=== PATIENT | male | born 1975 | race Two or more races ===

== ENCOUNTER 2019-04-08 16:17 | Emergency (ER) | payer OTHER ==
[~2019-04-08] VITALS: Ht 182.9 cm; Wt 90.7 kg
[2019-04-08 17:31] LABS: Basophils # (auto) 0 uL; Basophils % (auto) 0.8 % (0.0-2.0); Eosinophils # (auto) 0.3 uL; Eosinophils % (auto) 4.2 % (0.0-7.0); Hematocrit 45.2 % (41.0-53.0); Hemoglobin 15.4 g/dL (13.5-17.5); Lymphocytes # (auto) 1.7 uL; Lymphocytes % (auto) 27.7 % (10.0-50.0); Mean Corpuscular Hemoglobin 29.8 pg (28.0-32.0); Mean Corpuscular Hgb Conc. 34.1 g/dL (32.0-36.0); Mean Corpuscular Volume 87.5 fL (80.0-100.0); Monocytes # (auto) 0.5 uL; Monocytes % (auto) 8.3 % (0.0-12.0); Neutrophils # (auto) 3.7 uL; Nucleated Red Blood Cells % 0.1 %; Platelet Count (auto) 232 10^3/uL (140-450); Red Blood Cells 5.17 10^6/uL (4.5-5.90); Red Cell Distribution Width 14.3 % (11.8-14.3); White Blood Cell 6.3 10^3/uL (4.4-10.8)
[2019-04-08 17:40] LABS: Acetaminophen < 2.0 ug/mL (10-30); Salicylate < 1.7 mg/dL (2.8-20.0)
[2019-04-08 17:41] LABS: Albumin 4.1 g/dL (3.4-5.0); Anion Gap 4 (5-15); Blood Alcohol < 3.0 mg/dL (0-5); Blood Urea Nitrogen 11 mg/dL (7-18); Calcium 8.6 mg/dL (8.5-10.1); Carbon Dioxide 34 mmol/L (21-32); Chloride 103 mmol/L (98-107); Glucose 84 mg/dL (74-106); Potassium 3.8 mmol/L (3.5-5.1); Sodium 141 mmol/L (136-145)
[2019-04-08 17:44] LABS: Alanine Aminotransferase 38 U/L (16-61); Alkaline Phosphatase 138 U/L (45-117); Aspartate Aminotransferase 27 U/L (15-37); BUN/Creatinine Ratio 9.4; Bilirubin, Total 0.5 mg/dL (0.2-1.0); GFR African American 86 mL/min; GFR Non-African American 71 mL/min; Total Protein 8.2 g/dL (6.4-8.2)
[2019-04-08 19:23] LABS: Urine Bacteria NONE SEEN /hpf (None Seen); Urine Blood Negative /uL (Negative); Urine Specific Gravity 1.008 (1.001-1.035); Urine WBC <1 /hpf (0 - 3)
[2019-04-08 19:41] LABS: Alcohol, Urine < 3.0 mg/dL (0-5); Amphetamine Screen, Urine NEGATIVE (NEGATIVE); Barbiturate Scree,Urine NEGATIVE (NEGATIVE); Benzodiazephine Screen, Urine NEGATIVE (NEGATIVE); Cannabinoid Screen, Urine NEGATIVE (NEGATIVE); Cocaine Screen, Urine NEGATIVE (NEGATIVE); Opiate Scree,Urine NEGATIVE (NEGATIVE); Phencyclidine Screen, Urine NEGATIVE (NEGATIVE)
[2019-04-08 20:00] VITALS: BP 132/69
== END 2019-04-08 20:34 | disposition home or self-care (01) ==
LOC: ER 16:17 → EEVIPCON 16:17 → EDBD 16:17 → ER 20:34
DX: F41.9 Anxiety disorder, unspecified (principal); F32.9 Major depressive disorder, single episode, unspecified; R45.851 Suicidal ideations; I10 Essential (primary) hypertension
CPT/HCPCS: 36415; 80053; 80307; 80320; 80329; 81001; 85025; 93005

== ENCOUNTER 2019-06-23 22:05 | Emergency (ER) | payer OTHER ==
[~2019-06-23] VITALS: Ht 182.9 cm; Wt 104.0 kg
[2019-06-23 23:50] LABS: Basophils # (auto) 0.1 10 ^3/uL (0-0.2); Basophils % (auto) 0.8 % (0.0-2.0); Eosinophils # (auto) 0.5 10 ^3/uL (0-0.8); Eosinophils % (auto) 4.3 % (0.0-7.0); Hematocrit 43.8 % (41.0-53.0); Hemoglobin 15.6 g/dL (13.5-17.5); Lymphocytes % (auto) 16.6 % (10.0-50.0); Mean Corpuscular Hemoglobin 30.6 pg (28.0-32.0); Mean Corpuscular Hgb Conc. 35.7 g/dL (32.0-36.0); Mean Corpuscular Volume 85.6 fL (80.0-100.0); Monocytes # (auto) 1.1 10 ^3/uL (0-1.3); Monocytes % (auto) 9.2 % (0.0-12.0); Neutrophils # (auto) 8.4 10 ^3/uL (1.6-8.6); Neutrophils % (auto) 69.1 % (37.0-80.0); Nucleated Red Blood Cells % 0.1 %; Platelet Count (auto) 245 10^3/uL (140-450); Red Blood Cells 5.12 10^6/uL (4.5-5.90); Red Cell Distribution Width 14.3 % (11.8-14.3); White Blood Cell 12.1 10^3/uL (4.4-10.8)
[2019-06-24 00:07] LABS: Albumin 3.5 g/dL (3.4-5.0); Anion Gap 6 (5-15); BUN/Creatinine Ratio 12.6; Blood Alcohol < 3.0 mg/dL (0-5); Blood Urea Nitrogen 15 mg/dL (7-18); Calcium 8.5 mg/dL (8.5-10.1); Carbon Dioxide 26 mmol/L (21-32); Chloride 106 mmol/L (98-107); GFR African American 85 mL/min; GFR Non-African American 70 mL/min; Glucose 119 mg/dL (74-106); Sodium 138 mmol/L (136-145)
[2019-06-24 00:12] LABS: Potassium 2.9 mmol/L (3.5-5.1)
[2019-06-24 00:18] LABS: Acetaminophen < 2.0 ug/mL (10-30); Alanine Aminotransferase 26 U/L (16-61); Alkaline Phosphatase 124 U/L (45-117); Aspartate Aminotransferase 19 U/L (15-37); Bilirubin, Total 0.3 mg/dL (0.2-1.0); Salicylate < 1.7 mg/dL (2.8-20.0); Total Protein 7.5 g/dL (6.4-8.2)
[2019-06-24] MEDS ORDERED: SODIUM BICARBONATE 8.4 % INJ 50ML VIAL IV ONE (03:15)
[2019-06-24 03:25] LABS: Urine Bacteria FEW /hpf (None Seen); Urine Blood Negative /uL (Negative); Urine Hyaline Cast MANY /lpf (0 - 2); Urine Mucus FEW (None Seen); Urine Specific Gravity 1.025 (1.001-1.035); Urine WBC 3 /hpf (0 - 3)
[2019-06-24] MEDS ORDERED: POTASSIUM CHL 20 Meq TABLET PO ONE (03:30)
[2019-06-24 03:36] LABS: Alcohol, Urine < 3.0 mg/dL (0-5); Amphetamine Screen, Urine NEGATIVE (NEGATIVE); Barbiturate Scree,Urine NEGATIVE (NEGATIVE); Benzodiazephine Screen, Urine NEGATIVE (NEGATIVE); Cannabinoid Screen, Urine NEGATIVE (NEGATIVE); Cocaine Screen, Urine NEGATIVE (NEGATIVE); Opiate Scree,Urine NEGATIVE (NEGATIVE); Phencyclidine Screen, Urine NEGATIVE (NEGATIVE)
[2019-06-24] MEDS ORDERED: MAGNESIUM SULFATE 1GM/100ML 100 ML IV ONE (04:00)
[2019-06-24] MEDS: POTASSIUM CHL 20MEQ/100ML 100 ML IV SCH (05:15)
[2019-06-24] MEDS ORDERED: SODIUM CHLORIDE 0.9% 1,000 ML IV ONE (06:45)
[2019-06-24 09:15] VITALS: BP 120/80
== END 2019-06-24 09:40 | disposition home or self-care (01) ==
LOC: ER 22:05 → EDBD 22:05 → EEVIPCON 22:05 → ER 06-24 09:40
DX: S81.812A Laceration without foreign body, left lower leg, initial encounter (principal); T50.902A Poisoning by unspecified drugs, medicaments and biological substances, intentional self-harm, initial encounter; F32.9 Major depressive disorder, single episode, unspecified; E87.6 Hypokalemia; I10 Essential (primary) hypertension; Y92.89 Other specified places as the place of occurrence of the external cause; Y09 Assault by unspecified means
CPT/HCPCS: 36415; 80053; 80307; 80320; 80329; 81001; 85025; 93005; 96365; 96366; 96367; 96375; 99284; J3475; J3480; J7030